=== PATIENT | male | born 1985 | race Caucasian/White ===

== ENCOUNTER 2023-07-09 09:04 | Emergency (ER) | payer OTHER, SELFPAY ==
--- NOTE | 2023-07-09 09:07 | ED.GENADULT ---
HPI - General Adult General Chief complaint: Extremity Injury, Upper Stated complaint: Diarrhea,Finger Rt Hand Time Seen by Provider: 07/09/23 09:07 Source: patient Mode of arrival: ambulatory Limitations: no limitations History of Present Illness HPI narrative: 38-year-old male patient presents to the [facility] with complaints of wound to the right index finger. Patient states about a week ago at work he pinched in between 2 metal pieces and was cut. Patient states that his wanted to have him come and get checked out today consider concerned about tetanus. Patient can wear when his last tetanus shot was. patient denies any fevers, body aches or chills but states for the last 3 days he has had episodes of diarrhea. First day was about 4 episodes yesterday episodes today only 1. Denies any abdominal pain or vomiting but states he has had some nausea. Related Data Home Medications Medication Instructions Recorded Confirmed venlafaxine 150 mg 150 mg PO DAILY 07/09/23 07/09/23 capsule,extended release 24 hr Allergies Allergy/AdvReac Type Severity Reaction Status Date / Time No Known Allergies Allergy Verified 07/09/23 09:13 Review of Systems Review of Systems: CONSTITUTIONAL: Denies fever, chills, or sweats. EYES: Denies visual changes, redness, or discharge. ENT: Denies rhinorrhea, congestion, sore throat, or otalgia. CARDIOVASCULAR: Denies chest pain, palpitations, or edema. RESPIRATORY: Denies cough or dyspnea. GASTROINTESTINAL: Denies abdominal pain, positive nausea, denies vomiting, Positive diarrhea. GENITOURINARY: Denies dysuria or hematuria. SKIN: Denies rash or itching. positive wound to right index finger x1 week MUSCULOSKELETAL: Denies back pain, joint pain, or myalgia. NEUROLOGIC: Denies headache, numbness, or weakness. PSYCHIATRIC: Denies anxiety or depression. [facility] Past Medical History Medical History No significant past medical history Comments At the time of my signature I agree with nursing past medical history, surgical, social, and family history. There is no relevant family history pertinent to the presenting complaint. Exam Narrative: GENERAL: Well-appearing, well-nourished, and in no acute distress. HEAD: Normocephalic, atraumatic. EYES: PERRLA and EOMI. ENT: Nares clear, no rhinorrhea or epistaxis. Mucous membranes moist. NECK: Supple. No lymphadenopathy CHEST: Clear to auscultation. No respiratory distress. HEART: Regular rate and rhythm. No murmur heard. Normal peripheral pulses. ABDOMEN: Soft, flat, nondistended. No guarding, rebound tenderness, or rigid. No pulsatilla masses. Hyperactive Bowel sounds present in all four quadrants. No organomegaly. Negative Saul?s sign. No periumbicial tenderness. No Supra public tenderness or distension. Good femoral pulses bilaterally. No hernia noted. No scars or surface trauma. EXTREMITIES: Normal range of motion. No edema. SKIN: Warm, dry, no rash. patient has a healing laceration noted to the D IP of the right index finger on the home side. There is some surrounding redness. There was some skin that was peeling that was cut away with sterile scissors. Patient has excellent range of motion no damage to the nail is noted. No discharge from the wound and no streaking up the hand is noted at this time. NEURO: No focal deficits. Alert and oriented x3. Course Course Level of Care: Express Care Visit Vital Signs Vital signs: Vital Signs Temperature 37.0 C 07/09/23 09:24 Pulse Rate 60 07/09/23 09:24 Respiratory Rate 18 07/09/23 09:24 Blood Pressure 108/71 07/09/23 09:24 Pulse Oximetry 100 07/09/23 09:24 Oxygen Delivery Room Air 07/09/23 09:24 Temperature 37.0 C 07/09/23 09:24 Pulse Rate 60 07/09/23 09:24 Respiratory Rate 18 07/09/23 09:24 Blood Pressure 108/71 07/09/23 09:24 Pulse Oximetry 100 07/09/23 09:24 Oxyge
[2023-07-09 09:24] VITALS: BP 108/71; PULSE 60; RESP 18; TEMP 37; O2SAT 100
[2023-07-09] MEDS: TETANUS,DIPHTHERIA,AC PERTUSSIS ADULT (0.5 ML) BOOSTRIX IM (09:37)
== END 2023-07-09 10:00 | disposition home or self-care (01) ==
PROVIDERS: Emergency Provider Nurse Practitioner Family; PCP Nurse Practitioner Family
DX: S61.210A Laceration without foreign body of right index finger without damage to nail, initial encounter (principal); W45.8XXA Other foreign body or object entering through skin, initial encounter; Z23 Encounter for immunization; F41.9 Anxiety disorder, unspecified
CPT/HCPCS: 90471; 90715; 99213; G0463